=== PATIENT | male | born 1970 | race Caucasian/White ===

== ENCOUNTER 2019-05-22 22:02 | Emergency (ER) | payer OTHER ==
[2019-05-22 22:16] VITALS: TEMP 97.6
[2019-05-22] MEDS ORDERED: SODIUM CHLORIDE 0.9% 500 ML 500 ML IV STA (23:16)
[2019-05-22] MEDS ORDERED: SODIUM CHLORIDE 0.9% 1,000 ML IV STA (23:16)
--- NOTE | 2019-05-22 23:43 | ED ---
General Adult HPI - General Source: patient Mode of arrival: ambulatory Limitations: no limitations <Cecy Blanchard - Last Filed: 05/23/19 03:33> <Bobby Guadarrama - Last Filed: 05/23/19 06:33> - General Chief complaint: Extremity Problem,Nontraumatic Stated complaint: Leg pain Time Seen by Provider: 05/22/19 22:47 - History of Present Illness Initial comments: 49-year-old obviously intoxicated male patient presents to the emergency department today for evaluation. Patient's pain is having pain from his neuropathy. This is occurring in both lower extremities. He is also reporting some abdominal pain. He reports is in the upper abdomen. Does have a history of pancreatitis, states it is not as bad as that episode. Denies any nausea or vomiting. Denies fever, chills, constipation, diarrhea, hematochezia, melena, hematemesis. States he had a pint of liquor to drink today. Denies any chest pain or shortness of breath. Patient is very vague about symptoms and difficult to get information from. Patient denies any recent rash, back pain, numbness, tingling, dizziness, weakness, hematuria, dysuria, urinary urgency, urinary frequency, headache, visual changes, or any other complaints. (Cecy Blanchard) - Related Data Home Medications Medication Instructions Recorded Confirmed traZODone HCL [Desyrel] 50 mg PO BID 11/28/14 01/06/15 Previous Rx's Medication Instructions Recorded cloNIDine HCL [Catapres] 0.1 mg PO BID #60 tab 11/09/14 Nicotine 21Mg/24Hr Patch [Habitrol] 1 patch TRANSDERM DAILY #14 patch 12/13/14 Omeprazole [PriLOSEC] 40 mg PO AC-BID #60 capsule. 12/13/14 Allergies Allergy/AdvReac Type Severity Reaction Status Date / Time No Known Allergies Allergy Verified 05/22/19 22:16 Review of Systems ROS Other: All systems not noted in ROS Statement are negative. <Cecy Blanchard - Last Filed: 05/23/19 03:33> ROS Other: All systems not noted in ROS Statement are negative. <Bobby Guadarrama - Last Filed: 05/23/19 06:33> ROS Statement: Those systems with pertinent positive or pertinent negative responses have been documented in the HPI. Past Medical History Past Medical History: Hypertension Additional Past Medical History / Comment(s): 12/10/14 Pt admitted to [facility] ER with epigastric pain starting this mornin. He has been recnetly admitted for pancreatitis 11/28/14 and states this feels the same as then. Pt states he had stopped drinking for about one year and then started drinking again back in November 2014. It started out as beer and now is drinking vodka. He drank a pint of vodka last nite. Other HX: Acute and chronic pancreatitis, alcoholism, fatty liver infiltrate, nicotine addiction, hyponatremia,chronic back pain. History of Any Multi-Drug Resistant Organisms: None Reported Past Surgical History: Adenoidectomy Past Anesthesia/Blood Transfusion Reactions: No Reported Reaction Additional Past Anesthesia/Blood Transfusion Reaction / Comment(s): Pt states he has never recieved blood. Past Psychological History: Anxiety, Depression Smoking Status: Current every day smoker Past Alcohol Use History: Abuse, Daily Past Drug Use History: None Reported - Past Family History Mother Additional Family Medical History / Comment(s): Benign brain tumor Father Family Medical History: Cancer Additional Family Medical History / Comment(s): Throat cancer 2001 <Cecy Blanchard - Last Filed: 05/23/19 03:33> General Exam Limitations: no limitations General appearance: alert, in no apparent distress, other (social well- developed, well-nourished adult male patient in no acute distress. Vital signs upon presentation are temperature 97.6F, pulse 100, respirations 20, blood pressure 117/80, pulse ox 97% on room air.) Eye exam: Present: normal appearance, PERRL, EOMI. Absent: scleral icterus, conjunctival injection, periorbital swelling ENT exam: Present: normal exam, normal oropharynx, mucous membranes moist Respiratory exam: Present: normal lung sounds bilaterally. Absent: respiratory distress, wheezes, rales, rhonchi, stridor Cardiovascular Exam: Present: regular rate, normal rhythm, normal heart sounds. Absent: systolic murmur, diastolic murmur, rubs, gallop, clicks GI/Abdominal exam: Present: soft, tenderness (Midepigastric tenderness), normal bowel sounds. Absent: distended, guarding, rebound, rigid Neurological exam: Present: alert, oriented X3, CN II-XII intact Psychiatric exam: Present: normal affect, normal mood Skin exam: Present: warm, dry, intact, normal color. Absent: rash <Cecy Blanchard - Last Filed: 05/23/19 03:33> Course <Bobby Guadarrama - Last Filed: 05/23/19 06:33> Vital Signs 05/22/19 05/23/19 22:13 06:12 Temperature 97.6 F Pulse Rate 100 97 Respiratory 20 18 Rate Blood Pressure 117/80 122/91 O2 Sat by Pulse 97 98 Oximetry - Reevaluation(s) Reevaluation #1: 05/23/19 06:33 Medical records reviewed patient is currently sober (Bobby Guadarrama) Medical Decision Making - Lab Data Result diagrams: 05/22/19 23:35 05/22/19 23:35 <Cecy Blanchard - Last Filed: 05/23/19 03:33> - Lab Data Result diagrams: 05/22/19 23:35 05/22/19 23:35 <Bobby Guadarrama - Last Filed: 05/23/19 06:33> - Medical Decision Making 49 year-old male patient presents to the emergency department for evaluation of chronic leg pain and abdominal pain. Patient was obviously intoxicated and was difficult obtaining information. Labs reviewed and are unremarkable. Patient is resting in bed. He is not sober until 11 02. He does not have a ride home. He'll be monitored until sober and then discharged. (Cecy Blanchard) 49 male currently sober and able to ambulate without difficulty. Patient can be discharged home (Bobby Guadarrama) - Lab Data Lab Results 05/22/19 05/22/19 Range/Units 23:35 23:35 WBC 5.8 (3.8-10.6) k/uL RBC 4.44 (4.30-5.90) m/uL Hgb 15.7 (13.0-17.5) gm/dL Hct 45.3 (39.0-53.0) % MCV 102.1 H (80.0-100.0) fL MCH 35.3 H (25.0-35.0) pg MCHC 34.6 (31.0-37.0) g/dL RDW 11.8 (11.5-15.5) % Plt Count 255 (150-450) k/uL Neutrophils % 24 % Lymphocytes % 59 % Monocytes % 6 % Eosinophils % 5 % Basophils % 2 % Neutrophils # 1.4 (1.3-7.7) k/uL Lymphocytes # 3.4 (1.0-4.8) k/uL Monocytes # 0.3 (0-1.0) k/uL Eosinophils # 0.3 (0-0.7) k/uL Basophils # 0.1 (0-0.2) k/uL Sodium 144 (137-145) mmol/L Potassium 5.1 (3.5-5.1) mmol/L Chloride 108 H (98-107) mmol/L Carbon Dioxide 19 L (22-30) mmol/L Anion Gap 17 mmol/L BUN 10 (9-20) mg/dL Creatinine 0.63 L (0.66-1.25) mg/dL Est GFR (CKD-EPI)AfAm >90 (>60 ml/min/1.73 sqM) Est GFR (CKD-EPI)NonAf >90 (>60 ml/min/1.73 sqM) Glucose 132 H (74-99) mg/dL Calcium 9.9 (8.4-10.2) mg/dL Total Bilirubin 0.5 (0.2-1.3) mg/dL AST 67 H (17-59) U/L ALT 44 (4-49) U/L Alkaline Phosphatase 39 (38-126) U/L Total Protein 7.6 (6.3-8.2) g/dL Albumin 4.8 (3.5-5.0) g/dL Amylase 31 (30-110) U/L Lipase 37 (23-300) U/L Serum Alcohol 254 H* mg/dL Disposition Is patient prescribed a controlled substance at d/c from ED?: No <Cecy Blanchard - Last Filed: 05/23/19 03:33> <Bobby Guadarrama - Last Filed: 05/23/19 06:33> Clinical Impression: Alcohol intoxication, Abdominal pain Disposition: HOME SELF-CARE Condition: Good Instructions (If sedation given, give patient instructions): Alcohol Intoxication (ED), Abdominal Pain (ED) Referrals: Harshil Bass MD [Primary Care Provider] - 1-2 days
[2019-05-22 23:45] LABS: Basophils # (A) 0.1 k/uL (0-0.2); Basophils % (A) 2 %; Eosinophils # (A) 0.3 k/uL (0-0.7); Eosinophils % (A) 5 %; HCT 45.3 % (39.0-53.0); HGB 15.7 gm/dL (13.0-17.5); Lymphocytes # (A) 3.4 k/uL (1.0-4.8); Lymphocytes % (A) 59 %; MCH 35.3 pg (25.0-35.0); MCHC 34.6 g/dL (31.0-37.0); MCV 102.1 fL (80.0-100.0); Mean Platelet Volume 8.5; Monocytes # (A) 0.3 k/uL (0-1.0); Monocytes % (A) 6 %; Neutrophils # (A) 1.4 k/uL (1.3-7.7); Neutrophils % (A) 24 %; Platelet Count 255 k/uL (150-450); RBC 4.44 m/uL (4.30-5.90); RDW 11.8 % (11.5-15.5); WBC 5.8 k/uL (3.8-10.6)
[2019-05-22 23:56] LABS: ALT 44 U/L (4-49); AST 67 U/L (17-59); African American GFR (CKD) >90 (>60 ml/min/1.73 sqM); Albumin 4.8 g/dL (3.5-5.0); Alkaline Phosphatase 39 U/L (38-126); Amylase 31 U/L (30-110); Anion Gap 17 mmol/L; Blood Urea Nitrogen 10 mg/dL (9-20); Calcium 9.9 mg/dL (8.4-10.2); Carbon Dioxide 19 mmol/L (22-30); Chloride 108 mmol/L (98-107); Glucose 132 mg/dL (74-99); Non-African American GFR(CKD) >90 (>60 ml/min/1.73 sqM); Potassium 5.1 mmol/L (3.5-5.1); Sodium 144 mmol/L (137-145); Total Bilirubin 0.5 mg/dL (0.2-1.3); Total Protein 7.6 g/dL (6.3-8.2)
[2019-05-23 00:02] LABS: Alcohol 254 mg/dL
--- NOTE | 2019-05-23 00:05 | XR ---
EXAMINATION TYPE: XR KUB DATE OF EXAM: 05/22/2019 COMPARISON: 12/10/2014 HISTORY: Abdominal pain TECHNIQUE: 2 views upright FINDINGS: There is some retained fecal material in the large bowel. There is no evidence of free air. Lung bases are clear. There are no pathologic calcifications. IMPRESSION: Mild constipation. This appears new compared to old exam.
[2019-05-23] MEDS ORDERED: GABAPENTIN 300 MG CAP PO STA (06:04)
[2019-05-23 06:15] VITALS: BP 122/91; PULSE 97; RESP 18
== END 2019-05-23 06:45 | disposition home or self-care (01) ==
LOC: EC 22:02
DX: F10.129 Alcohol abuse with intoxication, unspecified (principal); M79.604 Pain in right leg; M79.605 Pain in left leg; R10.10 Upper abdominal pain, unspecified; G89.29 Other chronic pain; F41.9 Anxiety disorder, unspecified; F32.9 Major depressive disorder, single episode, unspecified; F17.200 Nicotine dependence, unspecified, uncomplicated; Z87.19 Personal history of other diseases of the digestive system; Z79.899 Other long term (current) drug therapy
CPT/HCPCS: 36415; 80053; 82150; 83690; 85025; 74018; 99283; 96360; G0480; 80320

== ENCOUNTER → 2019-06-30 | Outpatient (CLI) | payer OTHER ==
[2019-06-30 16:33] LABS: Basophils % (A) 0 %; Eosinophils # (A) 0.1 k/uL (0-0.7); Eosinophils % (A) 2 %; HGB 15.7 gm/dL (13.0-17.5); Lymphocytes # (A) 2.2 k/uL (1.0-4.8); Lymphocytes % (A) 37 %; MCH 33.2 pg (25.0-35.0); MCHC 34.1 g/dL (31.0-37.0); MCV 97.5 fL (80.0-100.0); Mean Platelet Volume 7.5; Monocytes # (A) 0.4 k/uL (0-1.0); Monocytes % (A) 6 %; Neutrophils # (A) 3.1 k/uL (1.3-7.7); Neutrophils % (A) 51 %; Platelet Count 241 k/uL (150-450); RBC 4.72 m/uL (4.30-5.90); RDW 11.6 % (11.5-15.5); WBC 6.1 k/uL (3.8-10.6)
[2019-06-30 16:42] LABS: African American GFR (CKD) >90 (>60 ml/min/1.73 sqM); Blood Urea Nitrogen 13 mg/dL (9-20); Non-African American GFR(CKD) >90 (>60 ml/min/1.73 sqM); Potassium 4.4 mmol/L (3.5-5.1)
== END | disposition home or self-care (01) ==
LOC: LABPAT 15:55
PROVIDERS: ATTEND Surgery
DX: Z01.818 Encounter for other preprocedural examination (principal); Z01.812 Encounter for preprocedural laboratory examination; K43.0 Incisional hernia with obstruction, without gangrene; E11.9 Type 2 diabetes mellitus without complications
CPT/HCPCS: 36415; 82565; 84132; 84520; 85025; 93005

== ENCOUNTER 2019-07-07 07:14 | Day surgery (SDC) | payer OTHER ==
[2019-07-01 16:00] VITALS: BMI 25.0
[~2019-07-07 07:14] MED LIST: DEXAMETHASONE SOD PHOSPHATE 10 MG/ML 1 ML VIAL IV ONE; HEPARIN SODIUM,PORCINE 5,000 UNIT/ML 1 ML VIAL SQ ONE; HYDROmorphone 0.5 MG/0.5 ML SYRINGE IVP PRN; LACTATED RINGERS 1,000 ML IV SCH; LIDOCAINE 1% (10MG/ML) FOR IV START INTRADERMA PRN; MIDAZOLAM 2 MG/2 ML VIAL IV PRN; ONDANSETRON 4 MG/2 ML VIAL IVP ONE; SCOPOLAMINE 1.5MG/72HR PATCH TRANSDERM ONE
[2019-07-07 08:19] LABS: Glucose,Whole Blood 110 mg/dL (75-99)
[2019-07-07] MEDS ORDERED: QUEtiapine 25 MG TAB PO STA (08:22)
[2019-07-07] MEDS ORDERED: MIDAZOLAM 2 MG/2 ML VIAL IVP ONE (08:30)
[2019-07-07] MEDS ORDERED: fentaNYL (PF) 50 MCG/ML 2 ML AMP IVP ONE (08:31)
[2019-07-07] MEDS ORDERED: TAMSULOSIN 0.4 MG CAP.ER.24H PO ONE (08:34)
--- NOTE | 2019-07-07 09:38 | P.GSHP ---
History of Present Illness H&P Date: 07/07/19 Chief Complaint: Ventral hernia This a 49-year-old male who presents today for laparoscopic robotic-assisted repair of ventral hernia. Patient developed a mass above his umbilicus Past Medical History Past Medical History: Diabetes Mellitus, Hypertension, Prostate Disorder Additional Past Medical History / Comment(s): hx. pancreatitis, alcoholism, fatty liver, used to be on BP medication-hasn't taken any in years History of Any Multi-Drug Resistant Organisms: None Reported Past Surgical History: Adenoidectomy Past Anesthesia/Blood Transfusion Reactions: No Reported Reaction Additional Past Anesthesia/Blood Transfusion Reaction / Comment(s): Pt states he has never recieved blood. Smoking Status: Current every day smoker - Past Family History Mother Additional Family Medical History / Comment(s): Benign brain tumor Father Family Medical History: Cancer Additional Family Medical History / Comment(s): Throat cancer 2001 Medications and Allergies Home Medications Medication Instructions Recorded Confirmed Type Empagliflozin [Jardiance] 25 mg PO DAILY 07/01/19 07/07/19 History Insulin Regular [HumuLIN R] 7 units SQ BID 07/01/19 07/07/19 History Tamsulosin [Flomax] 0.4 mg PO DAILY 07/01/19 07/07/19 History glyBURIDE [Diabeta] 5 mg PO AC-BID 07/01/19 07/07/19 History metFORMIN HCL [Glucophage] 1,000 mg PO BID 07/01/19 07/07/19 History Allergies Allergy/AdvReac Type Severity Reaction Status Date / Time No Known Allergies Allergy Verified 07/07/19 08:19 Surgical - Exam Vital Signs Temp Pulse Resp BP Pulse Ox 96.9 F L 56 L 16 108/68 97 07/07/19 08:01 07/07/19 08:01 07/07/19 08:01 07/07/19 08:01 07/07/19 08:01 - General well developed, well nourished, no distress - Eyes PERRL - ENT normal pinna - Neck no masses - Respiratory normal expansion - Cardiovascular Rhythm: regular - Abdomen 3 cm ventral hernia located above the umbilicus Abdomen: soft, non tender Results - Labs Abnormal Lab Results - Last 24 Hours (Table) 07/07/19 Range/Units 08:14 POC Glucose (mg/dL) 110 H (75-99) mg/dL Assessment and Plan Assessment: Ventral hernia. We'll perform laparoscopic robotic-assisted repair.
--- NOTE | 2019-07-07 09:38 | P.ANPRN ---
Procedure Note - Anesthesia - Nerve Block Performed Bilateral Rectus Abdominis Single Time Out Performed: Yes Date of Procedure: 07/07/19 Procedure Start Time: 08:30 Procedure Stop Time: 08:40 Location of Patient: PreOp Indication: Acute Post-Operative Pain Sedation Type: Sedate with meaningful contact maintained Preparation: Sterile Prep Position: Supine Catheter: None Needle Types: Pajunk Needle Gauge: 21 Ultrasound used to visualize needle placement: Yes Ultrasound used to observe medication spread: Yes Injectate: 0.5% Ropivacaine (see comment for volume) (ropivacaine 0.5% 15 cc + decadron 4mg-- per side) Blood Aspirated: No Pain Paresthesia on Injection Noted: No Resistance on Injection: Normal Image Stored and Saved: Yes Events: Uneventful and Well Tolerated
[2019-07-07] MEDS ORDERED: ROPIVACAINE 5 MG/ML 30 ML VIAL ONE (10:00)
[2019-07-07] MEDS ORDERED: MIDAZOLAM 2 MG/2 ML VIAL ONE (10:00)
[2019-07-07] MEDS ORDERED: NEOSTIGMINE 1 MG/ML 10 ML VIAL ONE (10:00)
[2019-07-07] MEDS ORDERED: ROCURONIUM BROMIDE 10 MG/ML 5 ML VIAL IV ONE (10:00)
[2019-07-07] MEDS ORDERED: LIDOCAINE 1% INJ 10MG/ML (20 ML MDV) ONE (10:00)
[2019-07-07] MEDS ORDERED: HYDROmorphone (PF) 1 MG/ML ONE (10:00)
[2019-07-07] MEDS ORDERED: DEXAMETHASONE SOD PHOSPHATE 4 MG/ML 1 ML VIAL ONE (10:00)
[2019-07-07] MEDS ORDERED: PROPOFOL 10 MG/ML 20 ML VIAL IV ONE (10:00)
[2019-07-07] MEDS ORDERED: KETAMINE 10 MG/ML 20 ML VIAL ONE (10:00)
[2019-07-07] MEDS ORDERED: GLYCOPYRROLATE 0.2 MG/ML 2 ML VIAL ONE (10:00)
[2019-07-07] MEDS ORDERED: fentaNYL (PF) 50 MCG/ML 2 ML AMP ONE (10:00)
[2019-07-07] MEDS ORDERED: LIDOCAINE 1%-EPI 1:100,000 20 ML VIAL SQ ONE ×2 (10:03)
[2019-07-07] MEDS ORDERED: LACTATED RINGERS 1,000 ML IV ONE (10:49)
[2019-07-07 11:08] VITALS: TEMP 97.6
[2019-07-07 11:42] LABS: Glucose,Whole Blood 233 mg/dL (75-99)
[2019-07-07] MEDS ORDERED: INSULIN ASPART (NovoLOG) 100 UNIT/ML VIAL SQ ONE (11:47)
--- NOTE | 2019-07-07 11:49 | P.OP ---
Date of Procedure: 07/07/19 Preoperative Diagnosis: Incarcerated ventral hernia Postoperative Diagnosis: Incarcerated ventral hernia Procedure(s) Performed: Laparoscopic robotic repair of incarcerated ventral hernia Partial omentectomy Anesthesia: JEAN Surgeon: Virgil Gordillo Pathology: other (Omentum) Condition: stable Description of Procedure: The patient was placed on the operating table in the supine position. He received general anesthesia. His abdomen was prepped and draped usual fashion. Using a 5 mm optical trocar under direct visualization the peritoneal cavity was entered in the left upper quadrant. The abdomen was then insufflated. The laparoscope was placed back into the perineal cavity. Next a 8 mm robotic trocar was placed in the left lower quadrant and a 12 mm robotic trocar was placed in the left lateral position. The original 5 mm trocar was exchanged for a 8 mm robotic trocar. The patient's placed in the left side up position. And the patient was docked to the robot. The incarcerated ventral hernia was visualized. Using hook cautery the peritoneum over the incisional hernia was excised. The incarcerated omentum was excised. The fascial opening was repaired using 0V LOC suture. Next a piece of 11 cm round ventral light ST mesh was placed into the. Cavity and secured with 2 OV lock suture. The patient was undocked the robot. The needles were retrieved. Incarcerated omentum was retrieved and sent to pathology The fascia of the 12 mm trocar site was closed with 0 Ethibond suture. Skin was closed interrupted 3-0 Monocryl suture. Dermabond dressings was applied. Patient tolerated procedure well and was sent to recovery room stable condition.
[2019-07-07 12:34] LABS: Glucose,Whole Blood 247 mg/dL (75-99)
[2019-07-07] MEDS ORDERED: HYDROcodone/APAP 5-325MG 1 EACH TAB PO ONE (12:41)
[2019-07-07 12:50] VITALS: RESP 18
[2019-07-07] MEDS ORDERED: INSULIN REGULAR 100 UNIT/ML VIAL SQ ONE (13:02)
[2019-07-07 13:55] VITALS: BP 126/79; PULSE 89
== END 2019-07-07 13:42 | disposition home or self-care (01) ==
LOC: OR 07:14
PROVIDERS: ATTEND Surgery
DX: K43.6 Other and unspecified ventral hernia with obstruction, without gangrene (principal); E11.9 Type 2 diabetes mellitus without complications; I10 Essential (primary) hypertension; N42.9 Disorder of prostate, unspecified; F10.21 Alcohol dependence, in remission; K76.0 Fatty (change of) liver, not elsewhere classified; F17.200 Nicotine dependence, unspecified, uncomplicated; Z80.8 Family history of malignant neoplasm of other organs or systems; Z80.0 Family history of malignant neoplasm of digestive organs; Z79.4 Long term (current) use of insulin; Z79.899 Other long term (current) drug therapy
CPT/HCPCS: 49653; S2900; 64488; 88305

== ENCOUNTER → 2019-12-09 | Outpatient (CLI) | payer OTHER ==
--- NOTE | 2019-12-09 13:41 | P.ARTDOP ---
Arterial Doppler LOWER EXTREMITY ARTERIAL DOPPLER: DATE OF SERVICE: 12/09/2019 Reason for study: Bilateral foot pain. Doppler waveforms: Multiphasic bilaterally throughout. Pulse volume recording: []. Pressure gradients: None. Ankle-brachial indices: Greater than 1 bilaterally. Toe brachial indices: 0.74 on the right, 0.71 on the left Impression: Normal study.
== END | disposition home or self-care (01) ==
LOC: RADUSWWP 07:02
PROVIDERS: ATTEND Internal Medicine
DX: M79.673 Pain in unspecified foot (principal)
CPT/HCPCS: 93922

== ENCOUNTER 2019-12-17 06:53 | Day surgery (SDC) | payer OTHER ==
[2019-12-16 09:42] VITALS: BMI 28.4
[~2019-12-17 06:53] MED LIST changes: -DEXAMETHASONE SOD PHOSPHATE 10 MG/ML 1 ML VIAL IV ONE; +FAMOTIDINE 20 MG/2 ML VIAL IV PRN; -HEPARIN SODIUM,PORCINE 5,000 UNIT/ML 1 ML VIAL SQ ONE; -HYDROmorphone 0.5 MG/0.5 ML SYRINGE IVP PRN; -LIDOCAINE 1% (10MG/ML) FOR IV START INTRADERMA PRN; -MIDAZOLAM 2 MG/2 ML VIAL IV PRN; -ONDANSETRON 4 MG/2 ML VIAL IVP ONE; +ONDANSETRON 4 MG/2 ML VIAL IVP PRN; -SCOPOLAMINE 1.5MG/72HR PATCH TRANSDERM ONE
[2019-12-17 07:23] VITALS: RESP 16; TEMP 97.7
[2019-12-17 07:25] LABS: Glucose,Whole Blood 150 mg/dL (75-99)
[2019-12-17] MEDS ORDERED: LIDOCAINE 1% INJ 10MG/ML (20 ML MDV) ONE (07:48)
[2019-12-17] MEDS ORDERED: PROPOFOL 10 MG/ML 20 ML VIAL IV ONE (07:48)
--- NOTE | 2019-12-17 07:54 | P.GSHP ---
History of Present Illness H&P Date: 12/17/19 Chief Complaint: Diarrhea This a 49-year-old male who presents today for screening colonoscopy. Patient issues with diarrhea. She's never had a colonoscopy before. Past Medical History Past Medical History: Diabetes Mellitus, Hypertension, Prostate Disorder, Thyroid Disorder Additional Past Medical History / Comment(s): hx. pancreatitis, alcoholism, fatty liver, used to be on BP medication-hasn't taken any in years History of Any Multi-Drug Resistant Organisms: None Reported Past Surgical History: Adenoidectomy, Hernia Repair Past Anesthesia/Blood Transfusion Reactions: No Reported Reaction Additional Past Anesthesia/Blood Transfusion Reaction / Comment(s): Pt states he has never recieved blood. Smoking Status: Current every day smoker - Past Family History Mother Additional Family Medical History / Comment(s): Benign brain tumor Father Family Medical History: Cancer Additional Family Medical History / Comment(s): Throat cancer 2001 Medications and Allergies Home Medications Medication Instructions Recorded Confirmed Type Tamsulosin [Flomax] 0.4 mg PO DAILY 07/01/19 12/17/19 History Insulin Glargine,Hum.rec.anlog 20 unit SQ HS 12/16/19 12/17/19 History [Basaglar Kwikpen U-100] Insulin Lispro [Admelog] 15 units SQ AC-TID 12/16/19 12/17/19 History Levothyroxine Sodium [Synthroid] 125 mcg PO DAILY 12/16/19 12/17/19 History Lipase/Protease/Amylase [[place] Dr 24,000 units PO AC-TID 12/16/19 12/17/19 History 12,000 Units Capsule] Allergies Allergy/AdvReac Type Severity Reaction Status Date / Time No Known Allergies Allergy Verified 12/17/19 07:07 Surgical - Exam Vital Signs Temp Pulse Resp BP Pulse Ox 97.7 F 70 16 125/78 96 12/17/19 07:19 12/17/19 07:19 12/17/19 07:19 12/17/19 07:19 12/17/19 07:19 - General well developed, well nourished, no distress - Eyes PERRL - ENT normal pinna - Neck no masses - Respiratory normal expansion - Cardiovascular Rhythm: regular - Abdomen Abdomen: soft, non tender Results - Labs Abnormal Lab Results - Last 24 Hours (Table) 12/17/19 Range/Units 07:22 POC Glucose (mg/dL) 150 H (75-99) mg/dL Assessment and Plan Assessment: Diarrhea. We'll perform screening colonoscopy
--- NOTE | 2019-12-17 08:06 | P.OP ---
Date of Procedure: 12/17/19 Preoperative Diagnosis: Screening colonoscopy Diarrhea Postoperative Diagnosis: Normal colonoscopy Procedure(s) Performed: Colonoscopy Anesthesia: MAC Surgeon: Virgil Gordillo Pathology: none sent Condition: stable Disposition: PACU Description of Procedure: PROCEDURE: The patient was placed on the endoscopy table in the lateral position. Digital rectal examination was performed which revealed no abnormalities. The prostate was symmetrical without nodules. Flexible colonoscope was then placed in the patient's anus and passed throughout the entire colon. The ileocecal valve was visualized. The cecum, ascending, transverse, descending and sigmoid colon were normal. The rectum was normal as well. There were no masses, polyps or diverticula noted in the entire colon. SUMMARY OF FINDINGS: Normal colonoscopy.
[2019-12-17] MEDS ORDERED: LACTATED RINGERS 1,000 ML IV ONE (08:09)
[2019-12-17 08:29] VITALS: BP 124/75; PULSE 77
== END 2019-12-17 08:42 | disposition home or self-care (01) ==
LOC: ORWHC2ENDO 06:53
PROVIDERS: ATTEND Surgery
DX: R19.7 Diarrhea, unspecified (principal); I10 Essential (primary) hypertension; E07.9 Disorder of thyroid, unspecified; E11.9 Type 2 diabetes mellitus without complications; N42.9 Disorder of prostate, unspecified; Z79.4 Long term (current) use of insulin; Z79.890 Hormone replacement therapy; Z79.899 Other long term (current) drug therapy; Z90.89 Acquired absence of other organs; Z98.890 Other specified postprocedural states; Z80.8 Family history of malignant neoplasm of other organs or systems
CPT/HCPCS: 45378; J2001; J2704

== ENCOUNTER → 2020-02-08 | Outpatient (CLI) | payer OTHER ==
--- NOTE | 2020-02-08 15:59 | XR ---
Right hip HISTORY: Right hip pain 2 views the right hip Bone mineralization is normal, joint space is mildly reduced s and alignment is maintained. Probable vascular calcifications present within the pelvis. Surgical lorenzo present within the perineum regio n. No fracture or dislocation. Minimal marginal spurring. IMPRESSION: Some mild osteoarthritic changes suspected. Hip MRI may be of benefit.
--- NOTE | 2020-02-08 16:02 | XR ---
Bilateral feet HISTORY: Bilateral foot pain 3 views of each foot submitted. Bone mineralization, joint spaces and alignment are maintained. There is a small right plantar calcan eal spur. IMPRESSION: Small right plantar calcaneal spur
== END | disposition home or self-care (01) ==
LOC: LABWHC1 15:01
PROVIDERS: ATTEND Internal Medicine
DX: M77.31 Calcaneal spur, right foot (principal); M25.551 Pain in right hip; E03.9 Hypothyroidism, unspecified
CPT/HCPCS: 36415; 73502; 84443

== ENCOUNTER 2020-09-03 13:41 | Emergency (ER) | payer OTHER ==
[2020-09-03 13:53] VITALS: BP 130/87; PULSE 79; RESP 20; TEMP 97.5
--- NOTE | 2020-09-03 14:10 | ED ---
General Adult HPI - General Chief complaint: Recheck/Abnormal Lab/Rx Stated complaint: LT hand pain Time Seen by Provider: 09/03/20 13:56 Source: patient, RN notes reviewed Mode of arrival: ambulatory Limitations: no limitations - History of Present Illness Initial comments: Patient is a pleasant 50-year-old male presenting to the emergency Department w ith complaints of left hand and wrist pain as well as bilateral leg pain from chronic neuropathy. Patient states he has been on Neurontin in the past with improvement of symptoms. Patient has been off this recently. Patient did try to make an appointment with his doctor however cannot get in until Saturday. Patient is diabetic, type I. Pain is chronic and unchanged. Pain is mostly left hand and left wrist. No new injury or worsening of chronic pain. - Related Data Home Medications Medication Instructions Recorded Confirmed Tamsulosin [Flomax] 0.4 mg PO DAILY 07/01/19 12/17/19 Insulin Glargine,Hum.rec.anlog 20 unit SQ HS 12/16/19 12/17/19 [Basaglar Kwikpen U-100] Insulin Lispro [Admelog] 15 units SQ AC-TID 12/16/19 12/17/19 Levothyroxine Sodium [Synthroid] 125 mcg PO DAILY 12/16/19 12/17/19 Lipase/Protease/Amylase [Jeffery Singh 24,000 units PO AC-TID 12/16/19 12/17/19 12,000 Units Capsule] Previous Rx's Medication Instructions Recorded Gabapentin [Neurontin] 100 mg PO BID #6 cap 09/03/20 Allergies Allergy/AdvReac Type Severity Reaction Status Date / Time No Known Allergies Allergy Verified 09/03/20 13:53 Review of Systems ROS Statement: Those systems with pertinent positive or pertinent negative responses have been documented in the HPI. ROS Other: All systems not noted in ROS Statement are negative. Constitutional: Denies: fever Eyes: Denies: eye pain ENT: Denies: ear pain Respiratory: Denies: cough Cardiovascular: Denies: chest pain Endocrine: Denies: fatigue Gastrointestinal: Denies: abdominal pain Musculoskeletal: Reports: as per HPI Skin: Denies: lesions Neurological: Denies: weakness Past Medical History Past Medical History: Diabetes Mellitus, Hypertension, Prostate Disorder Additional Past Medical History / Comment(s): hx. pancreatitis, alcoholism, fatty liver, used to be on BP medication-hasn't taken any in years History of Any Multi-Drug Resistant Organisms: None Reported Past Surgical History: Adenoidectomy Past Anesthesia/Blood Transfusion Reactions: No Reported Reaction Additional Past Anesthesia/Blood Transfusion Reaction / Comment(s): Pt states he has never recieved blood. Past Psychological History: Anxiety, Depression Smoking Status: Current every day smoker Past Alcohol Use History: Abuse, Daily Past Drug Use History: None Reported - Past Family History Mother Additional Family Medical History / Comment(s): Benign brain tumor Father Family Medical History: Cancer Additional Family Medical History / Comment(s): Throat cancer 2001 General Exam Limitations: no limitations General appearance: alert, in no apparent distress Head exam: Present: atraumatic Eye exam: Present: normal appearance Neck exam: Present: normal inspection Respiratory exam: Present: normal lung sounds bilaterally Cardiovascular Exam: Present: regular rate, normal rhythm Extremities exam: Present: normal inspection, full ROM. Absent: tenderness Neurological exam: Present: alert Psychiatric exam: Present: normal affect, normal mood Skin exam: Present: other (Patient does have multiple small skin abrasions bilateral arms that he states are from pine needles.) Course Vital Signs 09/03/20 13:50 Temperature 97.5 F L Pulse Rate 79 Respiratory 20 Rate Blood Pressure 130/87 O2 Sat by Pulse 96 Oximetry Disposition Clinical Impression: Neuropathy Disposition: HOME SELF-CARE Condition: Stable Instructions (If sedation given, give patient instructions): Diabetic Peripheral Neuropathy (ED) Additional Instructions: Please follow-up with your doctor Saturday as planned. Prescription sent here pharmacy. Return for fever, rash, weakness, worsening or change in symptoms or any other concerns. Prescriptions: Gabapentin [Neurontin] 100 mg PO BID #6 cap Is patient prescribed a controlled substance at d/c from ED?: Yes When asked, does pt state using other controlled substances?: No If prescribed controlled substance>3 days was MAPS reviewed?: Yes Referrals: Stanley Couch MD [Primary Care Provider] - 1-2 days Time of Disposition: 14:28
[2020-09-03] MEDS ORDERED: KETOROLAC 15 MG/ML 1 ML VIAL IM STA (14:20)
[2020-09-03] MEDS ORDERED: GABAPENTIN 100 MG CAP PO STA (14:21)
== END 2020-09-03 14:48 | disposition home or self-care (01) ==
LOC: EC 13:41
DX: E10.40 Type 1 diabetes mellitus with diabetic neuropathy, unspecified (principal); S60.812A Abrasion of left wrist, initial encounter; S60.811A Abrasion of right wrist, initial encounter; I10 Essential (primary) hypertension; F17.200 Nicotine dependence, unspecified, uncomplicated; F32.9 Major depressive disorder, single episode, unspecified; Z79.4 Long term (current) use of insulin; X58.XXXA Exposure to other specified factors, initial encounter
CPT/HCPCS: 99283; 96372; J1885

== ENCOUNTER 2020-09-08 16:41 | Observation (INO) | payer OTHER ==
[2020-09-08 16:49] LABS: Glucose,Whole Blood 113 mg/dL (75-99)
[2020-09-08 17:20] LABS: Basophils % (A) 0 %; Eosinophils # (A) 0.2 k/uL (0-0.7); Eosinophils % (A) 1 %; HGB 14.8 gm/dL (13.0-17.5); Lymphocytes # (A) 1.5 k/uL (1.0-4.8); Lymphocytes % (A) 12 %; MCH 32.6 pg (25.0-35.0); MCHC 34.4 g/dL (31.0-37.0); MCV 94.8 fL (80.0-100.0); Mean Platelet Volume 6.8; Monocytes # (A) 0.6 k/uL (0-1.0); Monocytes % (A) 5 %; Neutrophils # (A) 9.6 k/uL (1.3-7.7); Neutrophils % (A) 80 %; Platelet Count 247 k/uL (150-450); RBC 4.54 m/uL (4.30-5.90); RDW 13.6 % (11.5-15.5)
[2020-09-08 17:31] LABS: ALT 46 U/L (4-49); AST 45 U/L (17-59); African American GFR (CKD) >90 (>60 ml/min/1.73 sqM); Albumin 3.9 g/dL (3.5-5.0); Alkaline Phosphatase 55 U/L (38-126); Anion Gap 11 mmol/L; Blood Urea Nitrogen 8 mg/dL (9-20); Calcium 8.9 mg/dL (8.4-10.2); Carbon Dioxide 23 mmol/L (22-30); Chloride 108 mmol/L (98-107); Glucose 104 mg/dL (74-99); Lipase 20 U/L (23-300); Non-African American GFR(CKD) >90 (>60 ml/min/1.73 sqM); Potassium 3.6 mmol/L (3.5-5.1); Sodium 142 mmol/L (137-145); Total Bilirubin 0.2 mg/dL (0.2-1.3); Total Protein 6.1 g/dL (6.3-8.2)
[2020-09-08 17:35] LABS: Alcohol 260 mg/dL
[2020-09-08] MEDS ORDERED: NALOXONE 0.4 MG/ML 1 ML VIAL IV PRN (18:24)
--- NOTE | 2020-09-08 18:24 | ED ---
General Adult HPI - General Chief complaint: Recheck/Abnormal Lab/Rx Stated complaint: Diabetic Time Seen by Provider: 09/08/20 16:55 Source: EMS Mode of arrival: EMS Limitations: no limitations - History of Present Illness Initial comments: 50-year-old male who presents to the emergency department from [facility]. He was at [facility] with his mother when the patient had an episode of altered mental status. He is a type I diabetic who is insulin-dependent. Patient does not have an insulin pump. Administered Narcan to the patient. They also checked a glucose which was noted to be low. EMS did give a half amp of dextrose and oral glucose. The patient became arousable. Upon return to the hospital he did admit that he was drinking today. He denies using any other drugs. Admits to me that he drank alcohol and forgot to eat. He did take his insulin this morning. Patient has a CABG monitor. States it's not uncommon for his glucose to go well. Patient is visibly intoxicated. He is aggressive upon arrival there for the patient's mother is brought back to accompany the patient. She does state that he is recovering alcoholic and as far as she knows he doesn't drink any longer. The remainder of the HPI is limited. - Related Data Home Medications Medication Instructions Recorded Confirmed Tamsulosin [Flomax] 0.4 mg PO DAILY 07/01/19 09/08/20 Lipase/Protease/Amylase [Jeffery Singh 24,000 units PO AC-TID 12/16/19 09/08/20 12,000 Units Capsule] Azithromycin [Zithromax Z-pack (6 See Taper PO DIRECTED 09/08/20 09/08/20 tabs)] Ibuprofen [Motrin] 600 mg PO TID PRN 09/08/20 09/08/20 Insulin Detemir [Levemir Flextouch] 20 units SQ HS 09/08/20 09/08/20 Insulin Lispro [humaLOG Kwikpen] See Protocol SQ AC-TID 09/08/20 09/08/20 Lipase/Protease/Amylase [Jeffery Singh 12,000 units PO DAILY PRN 09/08/20 09/08/20 12,000 Units Capsule] Naloxone HCl [Narcan] 4 mg NASAL DIRECTED PRN 09/08/20 09/08/20 Pravastatin Sodium [Pravachol] 20 mg PO HS 09/08/20 09/08/20 methylPREDNISolone [Medrol Dose See Taper PO DIRECTED 09/08/20 09/08/20 Pack] Previous Rx's Medication Instructions Recorded Gabapentin [Neurontin] 100 mg PO BID #6 cap 09/03/20 Albuterol Sulfate [Proventil Hfa] 1 puff INHALATION Q4-6H PRN #1 09/09/20 inhaler Budesonide-Formot 160-4.5 Mcg 2 puff INHALATION BID #1 inhaler 09/09/20 [Symbicort 160-4.5 Mcg Inhaler] Pantoprazole [Protonix] 40 mg PO AC-BRKFST #30 tablet. 09/09/20 Allergies Allergy/AdvReac Type Severity Reaction Status Date / Time No Known Allergies Allergy Verified 09/08/20 17:00 Review of Systems ROS Statement: Those systems with pertinent positive or pertinent negative responses have been documented in the HPI. ROS Other: All systems not noted in ROS Statement are negative. Past Medical History Past Medical History: Diabetes Mellitus, Hypertension, Prostate Disorder Additional Past Medical History / Comment(s): hx. pancreatitis, alcoholism, fatty liver, used to be on BP medication-hasn't taken any in years History of Any Multi-Drug Resistant Organisms: None Reported Past Surgical History: Adenoidectomy Past Anesthesia/Blood Transfusion Reactions: No Reported Reaction Additional Past Anesthesia/Blood Transfusion Reaction / Comment(s): Pt states he has never recieved blood. Past Psychological History: Anxiety, Depression Smoking Status: Current every day smoker Past Alcohol Use History: Abuse, Daily Past Drug Use History: None Reported - Past Family History Mother Additional Family Medical History / Comment(s): Benign brain tumor Father Family Medical History: Cancer Additional Family Medical History / Comment(s): Throat cancer 2002 General Exam Limitations: altered mental status General appearance: alert, appears intoxicated, other (aggressive) Head exam: Present: atraumatic, normocephalic, normal inspection Eye exam: Present: normal appearance, PERRL, EOMI. Absent: scleral icterus, conjunctival injection, periorbital swelling ENT exam: Present: normal exam, mucous membranes moist Neck exam: Present: normal inspection. Absent: tenderness, meningismus, lymphadenopathy Respiratory exam: Present: normal lung sounds bilaterally. Absent: respiratory distress, wheezes, rales, rhonchi, stridor Cardiovascular Exam: Present: regular rate, normal rhythm, normal heart sounds. Absent: systolic murmur, diastolic murmur, rubs, gallop, clicks GI/Abdominal exam: Present: soft, normal bowel sounds. Absent: distended, tenderness, guarding, rebound, rigid Extremities exam: Present: normal inspection, full ROM, normal capillary refill. Absent: tenderness, pedal edema, joint swelling, calf tenderness Back exam: Present: normal inspection Neurological exam: Present: alert, oriented X3, CN II-XII intact Psychiatric exam: Present: agitated Skin exam: Present: warm, dry, intact, normal color. Absent: rash Course Vital Signs 09/08/20 09/08/20 09/08/20 16:55 19:00 20:18 Temperature 98.2 F Pulse Rate 71 69 71 Respiratory 20 18 18 Rate Blood Pressure 100/66 119/76 108/68 O2 Sat by Pulse 94 L 96 97 Oximetry 09/09/20 09/09/20 06:35 07:41 Temperature 98.4 F Pulse Rate 86 93 Respiratory 16 16 Rate Blood Pressure 117/72 123/77 O2 Sat by Pulse 96 97 Oximetry Medical Decision Making - Medical Decision Making Upon arrival patient was placed into room 8. Thorough history and physical exam was performed. Patient does admit to me that he has been drinking today. I did recommend laboratory studies which the patient did agree to. Laboratory studies demonstrate a glucose of 104. Alcohol is 260. I did discuss these results with the patient and his mother at bedside. Mother refuses to take the patient home stating that he has been verbally aggressive against her. Patient has no other ride home. I informed him that he would have to remain hospitalized until he is sober. Alcohol level is above 250 and therefore patient will be admitted to the hospital. Spoke with Dr. Marie - patient placed on D5 and sliding scale. Patient is currently awaiting a bed on the floor - Lab Data Result diagrams: 09/09/20 07:52 09/09/20 07:52 Lab Results 09/08/20 09/08/20 09/08/20 Range/Units 16:48 17:05 17:05 WBC 12.0 H (3.8-10.6) k/uL RBC 4.54 (4.30-5.90) m/uL Hgb 14.8 (13.0-17.5) gm/dL Hct 43.0 (39.0-53.0) % MCV 94.8 (80.0-100.0) fL MCH 32.6 (25.0-35.0) pg MCHC 34.4 (31.0-37.0) g/dL RDW 13.6 (11.5-15.5) % Plt Count 247 (150-450) k/uL MPV 6.8 Neutrophils % 80 % Lymphocytes % 12 % Monocytes % 5 % Eosinophils % 1 % Basophils % 0 % Neutrophils # 9.6 H (1.3-7.7) k/uL Lymphocytes # 1.5 (1.0-4.8) k/uL Monocytes # 0.6 (0-1.0) k/uL Eosinophils # 0.2 (0-0.7) k/uL Basophils # 0.0 (0-0.2) k/uL Sodium 142 (137-145) mmol/L Potassium 3.6 (3.5-5.1) mmol/L Chloride 108 H (98-107) mmol/L Carbon Dioxide 23 (22-30) mmol/L Anion Gap 11 mmol/L BUN 8 L (9-20) mg/dL Creatinine 0.63 L (0.66-1.25) mg/dL Est GFR (CKD-EPI)AfAm >90 (>60 ml/min/1.73 sqM) Est GFR (CKD-EPI)NonAf >90 (>60 ml/min/1.73 sqM) Glucose 104 H (74-99) mg/dL POC Glucose (mg/dL) 113 H (75-99) mg/dL POC Glu Grab Operator ID Nichole Little Calcium 8.9 (8.4-10.2) mg/dL Total Bilirubin 0.2 (0.2-1.3) mg/dL AST 45 (17-59) U/L ALT 46 (4-49) U/L Alkaline Phosphatase 55 (38-126) U/L Total Protein 6.1 L (6.3-8.2) g/dL Albumin 3.9 (3.5-5.0) g/dL Lipase 20 L (23-300) U/L Serum Alcohol 260 H* mg/dL Disposition Clinical Impression: Hypoglycemia, Type 1 diabetes mellitus, Alcohol intoxication Disposition: ADMITTED IP TO THIS HOSP Condition: Stable Is patient prescribed a controlled substance at d/c from ED?: No Decision to Admit Reason: Admit from EC Decision Date: 09/08/20 Decision Time: 18:24
[2020-09-08] MEDS ORDERED: ZIPRASIDONE 20 MG VIAL IM STA (18:40)
[2020-09-08] MEDS: DEXTROSE 5%-0.9% NACL 1,000 ML IV SCH (20:49)
[2020-09-08] MEDS: INSULIN ASPART (NovoLOG) 100 UNIT/ML VIAL SQ SCH (23:41)
[2020-09-09 06:46] VITALS: RESP 16; TEMP 98.4
[2020-09-09 07:43] LABS: Glucose,Whole Blood 187 mg/dL (75-99)
[2020-09-09] MEDS: INSULIN ASPART (NovoLOG) 100 UNIT/ML VIAL SQ SCH (07:56)
[2020-09-09] MEDS: DEXTROSE 5%-0.9% NACL 1,000 ML IV SCH (07:57)
[2020-09-09] MEDS ORDERED: LIPASE 5,000/PROTEASE 17,000/AMYLASE 24,000 PO PRN (08:51)
[2020-09-09] MEDS ORDERED: ENOXAPARIN 40 MG/0.4 ML SYRINGE SQ SCH (09:00)
[2020-09-09] MEDS ORDERED: PANTOPRAZOLE 40 MG TABLET PO SCH (09:00)
[2020-09-09] MEDS ORDERED: GABAPENTIN 100 MG CAP PO SCH (09:00)
[2020-09-09] MEDS ORDERED: TAMSULOSIN 0.4 MG CAP.ER.24H PO SCH (09:45)
[2020-09-09 10:45] VITALS: BP 136/89; PULSE 87
--- NOTE | 2020-09-09 11:18 | P.HPIM ---
History of Present Illness H&P Date: 09/09/20 Chief Complaint: Altered mental status HISTORY AND PHYSICAL AND DISCHARGE SUMMARY: HISTORY OF PRESENT ILLNESS This is a 50-year-old male patient of Dr. Couch with past medical history of diabetes mellitus type 1, hypertension, fatty liver, alcohol abuse, pancreatitis, recurrent depression, benign prostatic hypertrophy, tobacco use and dependence, marijuana use. Patient was seen in emergency room on September 03 complaints of left hand and wrist pain, bilateral leg pain and chronic neuropathy. He was off his Neurontin and try to make an appointment with his physician but could not get in until Saturday. Patient was given prescription for gabapentin 100 mg twice daily and discharged home with plan for follow-up with his PCP. Patient now presents due to altered mental status. He was brought in by EMS from [facility]. Patient apparently was off his insulin pump. EMS gave him Narcan, glucose was low and he was given half amp of dextrose and oral dextrose with improvement of his mental status. Patient admitted that he had been drinking alcohol and he forgets to eat. He didn't take his morning insulin. Mother passed on to the ER staff the patient is a recovering alcoholic and he was not drinking any longer. She is vague and somewhat resistant to answering questions. He seems to understand how to manage his blood sugars on a normal basis and he counts carbs. He states he has not been taking the scheduled 15 units with meals for some time since he was transitioned to type 1 diabetes. He denies having any nausea, vomiting, diarrhea. 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 His hvac sales representative is Dr. Robbie Couch. He does not recall his last hemoglobin A1c. His last blood sugar was 187. Patient presented to [facility] emergency center for evaluation. He was afebrile, heart rate 71, blood pressure 100/66, pulse ox 94% on room air. Lab work revealed WBC 12.0, hemoglobin 14.8, platelet count 247. Blood sugar 104. Sodium 142, potassium 3.6, chloride 108, CO2 23, BUN 8 and creatinine 0.63. Calcium 8.9. Total bilirubin 0.2 every function tests normal. Albumin 3.9. Lipase and amylase normal. Serum alcohol level 260. Coronavirus not detected. Patient will be discharged home today in stable condition with plan to follow-up with his PCP and hvac sales representative. REVIEW OF SYSTEMS Constitutional: No fever, no chills, no night sweats. No weight change. No weakness, fatigue or lethargy. No daytime sleepiness. EENT: No headache. No blurred vision or double vision, no loss of vision. No loss of Hearing, no ringing in the ears, no dizziness. No nasal drainage or congestion. No epistaxis. No sore throat. Lungs: No shortness of breath, cough, no sputum production. No wheezing. Cardiovascular: No chest pain, no lower extremity edema. No palpitations. No paroxysmal nocturnal dyspnea. No orthopnea. No lightheadedness or dizziness. No syncopal episodes. Abdominal: No abdominal pain. No nausea, vomiting. No diarrhea. No constipation. No bloody or tarry stools.. No loss of appetite. Genitourinary: No dysuria, increased frequency, urgency. No urinary retention. Musculoskeletal: No myalgias. No muscle weakness, no gait dysfunction, no frequent falls. No back pain. No neck pain. Integumentary: No wounds, no lesions. No rash or pruritus. No unusual bruising. No change in hair or nails. Neurologic: No aphasia. No facial droop. No change in mentation. No head injury. No headache. No paralysis. No paresthesia. Psychiatric: No depression. No anxiety. No mood swings. Endocrine: No abnormal blood sugars. No weight change. No excessive sweating or thirst. No cold intolerance. SOCIAL HISTORY Patient is a smoker one pack per day. He has history of alcohol abuse but has been sober for a long period of time. He does not have oxygen, nebulizers CPAP at home. He lives with his mother. FAMILY HISTORY Mother is alive with no major medical problems. Father with no major medical problems. Patient has one sister that has but he does not know why. Patient refuses to give any information regarding his children. PHYSICAL EXAMINATION Gen: This is a 50-year-old male patient. He is resting on ER stretcher and appears to be comfortable and in no acute distress. HEENT: Head is atraumatic, normocephalic. Pupils equal, round. Sclerae is anicteric. NECK: Supple. No JVD. No lymphadenopathy. No thyromegaly. LUNGS: Clear to auscultation. No wheezes or rhonchi. No intercostal retractions. HEART: Regular rate and rhythm. No murmur. ABDOMEN: Soft. Bowel sounds are present. No masses. No tenderness. EXTREMITIES: No pedal edema. No calf tenderness. NEUROLOGICAL: Patient is awake, alert and oriented x3. Cranial nerves 2 through 12 are grossly intact. ASSESSMENT AND PLAN 1. Metabolic encephalopathy secondary to Hypoglycemia secondary to noncompliance with medications and lack of oral fluid intake. Patient started on D5 normal saline at 75 mL per hour with NovoLog scale before meals and at bedtime. Continue consistent carb diet for now. 2. Diabetes mellitus type 1. Continue as in #1. 3. Alcohol intoxication. Continue IV fluids, monitor for DTs. 4. Acute bronchitis. Patient complete course of Medrol Dosepak and Z-Juan Diego, Symbicort and Ventolin inhalers also added. 5. Hypertension. Blood pressure is currently stable without medication. 6. History of fatty liver. 7. History of pancreatitis, stable. No complaints of abdominal pain and enzymes normal. Continue Creon 12,000 units 3 times daily scheduled and as needed. 8. Recurrent depression. 9. Tobacco use and dependence. Nicotine patch 10. History of alcohol abuse. 11. Benign prostatic hypertrophy. Continue Flomax 0.4 mg daily. 12. Diabetic neuropathy. Continue gabapentin 100 mg twice daily. 13. GI prophylaxis. Protonix 40 mg oral daily. 14. DVT prophylaxis. Lovenox subcu daily. 15. COVID-19 testing negative. Patient has been hospitalized during a pandemic. Patient is observation status. DISCHARGE PLAN Home today. Impression and plan of care have been directed as dictated by the signing physician. Shanell Womack nurse practitioner acting as scribe for signing physician. Past Medical History Past Medical History: Diabetes Mellitus, Hypertension, Prostate Disorder Additional Past Medical History / Comment(s): hx. pancreatitis, alcoholism, fatty liver, used to be on BP medication-hasn't taken any in years History of Any Multi-Drug Resistant Organisms: None Reported Past Surgical History: Adenoidectomy Past Anesthesia/Blood Transfusion Reactions: No Reported Reaction Additional Past Anesthesia/Blood Transfusion Reaction / Comment(s): Pt states he has never recieved blood. Past Psychological History: Anxiety, Depression Smoking Status: Current every day smoker Past Alcohol Use History: Abuse, Daily Past Drug Use History: None Reported - Past Family History Mother Additional Family Medical History / Comment(s): Benign brain tumor Father Family Medical History: Cancer Additional Family Medical History / Comment(s): Throat cancer 2001 Medications and Allergies Home Medications Medication Instructions Recorded Confirmed Type Tamsulosin [Flomax] 0.4 mg PO DAILY 07/01/19 09/08/20 History Lipase/Protease/Amylase [Jeffery Singh 24,000 units PO AC-TID 12/16/19 09/08/20 History 12,000 Units Capsule] Gabapentin [Neurontin] 100 mg PO BID #6 cap 09/03/20 09/08/20 Rx Azithromycin [Zithromax Z-pack (6 See Taper PO DIRECTED 09/08/20 09/08/20 History tabs)] Ibuprofen [Motrin] 600 mg PO TID PRN 09/08/20 09/08/20 History Insulin Detemir [Levemir Flextouch] 20 units SQ HS 09/08/20 09/08/20 History Insulin Lispro [humaLOG Kwikpen] See Protocol SQ AC-TID 09/08/20 09/08/20 History Lipase/Protease/Amylase [Jeffery Singh 12,000 units PO DAILY PRN 09/08/20 09/08/20 History 12,000 Units Capsule] Naloxone HCl [Narcan] 4 mg NASAL DIRECTED PRN 09/08/20 09/08/20 History Pravastatin Sodium [Pravachol] 20 mg PO HS 09/08/20 09/08/20 History methylPREDNISolone [Medrol Dose See Taper PO DIRECTED 09/08/20 09/08/20 History Pack] Albuterol Sulfate [Proventil Hfa] 1 puff INHALATION Q4-6H PRN #1 09/09/20 Rx inhaler Budesonide-Formot 160-4.5 Mcg 2 puff INHALATION BID #1 inhaler 09/09/20 Rx [Symbicort 160-4.5 Mcg Inhaler] Pantoprazole [Protonix] 40 mg PO AC-BRKFST #30 tablet. 09/09/20 Rx Allergies Allergy/AdvReac Type Severity Reaction Status Date / Time No Known Allergies Allergy Verified 09/08/20 17:00 Physical Exam Vitals: Vital Signs Temp Pulse Resp BP Pulse Ox 09/09/20 07:41 93 16 123/77 97 09/09/20 06:35 98.4 F 86 16 117/72 96 09/08/20 20:18 71 18 108/68 97 09/08/20 19:00 69 18 119/76 96 09/08/20 16:55 98.2 F 71 20 100/66 94 L Intake and Output 09/08/20 09/09/20 09/09/20 22:59 06:59 14:59 Other: Weight 81.647 kg Results CBC & Chem 7: 09/08/20 17:05 09/08/20 17:05 Labs: Abnormal Lab Results - Last 24 Hours (Table) 09/08/20 09/08/20 09/08/20 Range/Units 16:48 17:05 17:05 WBC 12.0 H (3.8-10.6) k/uL Neutrophils # 9.6 H (1.3-7.7) k/uL Chloride 108 H (98-107) mmol/L BUN 8 L (9-20) mg/dL Creatinine 0.63 L (0.66-1.25) mg/dL Glucose 104 H (74-99) mg/dL POC Glucose (mg/dL) 113 H (75-99) mg/dL Total Protein 6.1 L (6.3-8.2) g/dL Lipase 20 L (23-300) U/L Serum Alcohol 260 H* mg/dL 09/09/20 Range/Units 07:39 WBC (3.8-10.6) k/uL Neutrophils # (1.3-7.7) k/uL Chloride (98-107) mmol/L BUN (9-20) mg/dL Creatinine (0.66-1.25) mg/dL Glucose (74-99) mg/dL POC Glucose (mg/dL) 187 H (75-99) mg/dL Total Protein (6.3-8.2) g/dL Lipase (23-300) U/L Serum Alcohol mg/dL
[2020-09-09 11:43] LABS: Basophils # (A) 0.02 X 10*3/uL (0.00-0.10); Basophils % (A) 0.2 %; Eosinophils # (A) 0.18 X 10*3/uL (0.04-0.35); Eosinophils % (A) 1.9 %; HCT 45.2 % (39.6-50.0); HGB 15.1 g/dL (13.0-17.0); Lymphocytes # (A) 1.62 X 10*3/uL (0.90-5.00); Lymphocytes % (A) 17.3 %; MCH 31.9 pg (27.0-32.0); MCHC 33.4 g/dL (32.0-37.0); MCV 95.4 fL (80.0-97.0); Monocytes # (A) 0.72 X 10*3/uL (0.20-1.00); Monocytes % (A) 7.7 %; Neutrophils # (A) 6.79 X 10*3/uL (1.80-7.70); Neutrophils % (A) 72.5 %; Platelet Count 315 X 10*3/uL (140-440); RBC 4.74 X 10*6/uL (4.40-5.60); RDW 14.3 % (11.5-14.5); WBC 9.37 X 10*3/uL (4.50-10.00)
[2020-09-09 11:58] LABS: African American GFR (CKD) 126.6 (60.0-200.0); Anion Gap 8.1 mmol/L (4.00-12.00); BUN/Creat Ratio 15.71 Ratio (12.00-20.00); Calcium 9.1 mg/dL (8.7-10.3); Carbon Dioxide 24.9 mmol/L (21.6-31.8); Non-African American GFR(CKD) 109.3 (60.0-200.0); Potassium 4.9 mmol/L (3.5-5.5)
[2020-09-09] MEDS ORDERED: LIPASE 5,000/PROTEASE 17,000/AMYLASE 24,000 PO SCH (12:30)
[2020-09-09] MEDS ORDERED: PRAVASTATIN SODIUM 20 MG TAB PO SCH (21:00)
== END 2020-09-09 10:44 | disposition home or self-care (01) ==
LOC: EC 16:41 → 6NMEDSUR 18:25
PROVIDERS: ADMIT Family Medicine; ATTEND Family Medicine
DX: G93.41 Metabolic encephalopathy (principal); E10.649 Type 1 diabetes mellitus with hypoglycemia without coma; E10.40 Type 1 diabetes mellitus with diabetic neuropathy, unspecified; J20.9 Acute bronchitis, unspecified; I10 Essential (primary) hypertension; K76.0 Fatty (change of) liver, not elsewhere classified; F10.229 Alcohol dependence with intoxication, unspecified; Y90.8 Blood alcohol level of 240 mg/100 ml or more; F33.9 Major depressive disorder, recurrent, unspecified; F41.9 Anxiety disorder, unspecified; F17.210 Nicotine dependence, cigarettes, uncomplicated; K85.90 Acute pancreatitis without necrosis or infection, unspecified; N40.0 Benign prostatic hyperplasia without lower urinary tract symptoms; T38.3X6A Underdosing of insulin and oral hypoglycemic [antidiabetic] drugs, initial encounter; T46.5X6A Underdosing of other antihypertensive drugs, initial encounter; Z91.14 Patient's other noncompliance with medication regimen; Z90.49 Acquired absence of other specified parts of digestive tract; Z20.822 Contact with and (suspected) exposure to COVID-19; Z79.4 Long term (current) use of insulin; Z79.899 Other long term (current) drug therapy; Z79.51 Long term (current) use of inhaled steroids; Z80.8 Family history of malignant neoplasm of other organs or systems; Z82.0 Family history of epilepsy and other diseases of the nervous system
CPT/HCPCS: 96360; 96361 ×2; 96372; 99284; 36415; 80053; 80048; 83690; 85025 ×2; 87635; G0378 ×2; G0480; J3486; 80320